=== PATIENT | female | born 1965 | race Caucasian/White ===

== ENCOUNTER 2018-09-16 11:03 | Emergency (ER) | payer OTHER ==
[~2018-09-16] VITALS: Ht 165.1 cm; Wt 101.8 kg
[~2018-09-16 11:03] MED LIST: AMLO2.5T78 PO
[2018-09-16 11:18] VITALS: BP 179/100; PULSE 96; RESP 18; Ht 165.1 cm; Wt 101.8 kg
[2018-09-16] MEDS ORDERED: DIPHTH/TET/ACEL PERTUSS (ADULT) 0.5 ML VIAL IM* ONE (13:00)
[2018-09-16] MEDS ORDERED: MUPIROCIN 2% 22 GM OINT TOP ONE (13:30)
[2018-09-16] MEDS ORDERED: AMOX1TAB10 PO (13:31)
--- NOTE | 2018-09-16 20:28 | ERD ---
ER Documentation Chief Complaint Chief Complaint dog bite ( right breast area) HPI 52yo female presents for dog bite this morning. She was bite by her own dog over the right breast area. Unknown tetanus status. She currently has mild pain. No other complaints. ROS All systems reviewed and are negative except as per history of present illness. Medications Home Meds Active Scripts Mupirocin* (Bactroban*) 2% -22 Gram Oint...g., 1 APPLIC TOP BID for 7 Days, EA Prov:ALCON CASAREZ PA-C 09/18/18 Amoxicillin/Potassium Clav (Amox-Clav 875-125 mg Tablet) 875-125 mg Tab, 1 TAB PO BID for dog bite prophylaxis for 4 Days, #8 TAB Prov:ARTI FIORE DO 09/16/18 Reported Medications Amlodipine Besylate* (Amlodipine Besylate*) 2.5 Mg Tablet, 2.5 MG PO DAILY, TAB 08/11/14 Allergies Allergies: Coded Allergies: No Known Drug Allergies (Verified Allergy, Unknown, 09/16/18) PMhx/Soc History of Surgery: Yes (HYSTERECTOMY) Anesthesia Reaction: No Hx Neurological Disorder: No Hx Respiratory Disorders: No Hx Cardiac Disorders: Yes (HTN) Hx Psychiatric Problems: No Hx Miscellaneous Medical Probl: No Hx Alcohol Use: No Hx Substance Use: No Hx Tobacco Use: No Physical Exam Vitals temp 98, pulse 96, respiration 18, BP 179/100 Physical Exam Const: No acute distress Resp: Clear to auscultation bilaterally Cardio: Regular rate and rhythm, no murmurs Skin: Examination of the right breast area with nursing staff at bedside, there is a few puncture wounds, no active bleeding Back: No midline or flank tenderness Ext: No cyanosis, or edema Neur: Awake and alert Psych: Normal Mood and Affect Results 24 hrs Current Medications Medications Dose Sig/Niko Start Time Status Last (Trade) Ordered Route PRN Stop Time Admin Dose Reason Admin Diphtheria/ 0.5 ml ONCE ONCE 09/16/18 DC 09/16/18 Tetanus/Acell IM* 13:00 12:58 Pertussis 09/16/18 13:01 (Adacel) Mupirocin 1 applic ONCE ONCE 09/16/18 DC (Bactroban) TOP 13:30 09/16/18 13:31 Procedures/MDM Medical Decision Making: Patient presents with dog bite over the right breast area, there is no active bleeding. Patient appeared well on physical exam. The right breast area was irrigated. Patient was given tetanus shot. Patient given prescription for Augmentin. Advised to return to the ER in 2 days for a wound check. Patient noted to have a elevated blood pressure 179/100. She does have a histor y of hypertension and stated that she did not take her medication this afternoon. Patient currently is symptomatic. Patient advised to follow with her primary care physician regarding the hypertension. Patient advised to follow up with PCP in 1-2 days. Patient advised to return to ED for new or worsening symptoms. Patient stable on discharge from the ED. Disclaimer: Inadvertent spelling and grammatical errors are likely due to EHR/dictation software use and do not reflect on the overall quality of patient care. Also, please note that the electronic time recorded on this note does not necessarily reflect the actual time of the patient encounter. Departure Diagnosis: Primary Impression: Dog bite Condition: Fair Patient Instructions: Dog Bite Referrals: [facility] YOU HAVE RECEIVED A MEDICAL SCREENING EXAM AND THE RESULTS INDICATE THAT YOU DO NOT HAVE A CONDITION THAT REQUIRES URGENT TREATMENT IN THE EMERGENCY DEPARTMENT. FURTHER EVALUATION AND TREATMENT OF YOUR CONDITION CAN WAIT UNTIL YOU ARE SEEN IN YOUR DOCTORS OFFICE WITHIN THE NEXT 1-2 DAYS. IT IS YOUR RESPONSIBILITY TO MAKE AN APPOINTMENT FOR FOLOW-UP CARE. IF YOU HAVE A PRIMARY DOCTOR --you should call your primary doctor and schedule an appointment IF YOU DO NOT HAVE A PRIMARY DOCTOR YOU CAN CALL OUR PHYSICIAN REFERRAL HOTLINE AT IF YOU CAN NOT AFFORD TO SEE A PHYSICIAN YOU CAN CHOSE FROM THE FOLLOWING [facility] [address] [facility] [address] [facility] [address] [facility] [facility] [address] [facility] [address] [facility]. [facility]. [address] Additional Instructions: Call your primary care doctor TOMORROW for an appointment during the next 1-2 days.See the doctor sooner or return here if your condition worsens before your appointment time. ARTI FIORE DO Sep 16, 2018 20:28
== END 2018-09-16 13:59 | disposition home or self-care (01) ==
LOC: FTE 11:03
DX: S21.052A Open bite of left breast, initial encounter (principal); I10 Essential (primary) hypertension; W54.0XXA Bitten by dog, initial encounter; Z23 Encounter for immunization
CPT/HCPCS: 90715; Z7610; 90471

== ENCOUNTER 2018-09-18 04:42 | Emergency (ER) | payer OTHER ==
[~2018-09-18] VITALS: Ht 165.1 cm; Wt 102.7 kg
[~2018-09-18 04:42] MED LIST changes: +AMOX1TAB10 PO
[2018-09-18 04:45] VITALS: BP 189/98; PULSE 88; RESP 19; Ht 165.1 cm; Wt 102.7 kg
[2018-09-18] MEDS ORDERED: MUPI22OI2 TOP (06:25)
--- NOTE | 2018-09-18 07:18 | ERD ---
ER Documentation Chief Complaint Chief Complaint RECHECK DOG BITE ON RIGHT BREAST HPI 52-year-old female presenting for wound check of the right breast. Patient sustained a dog bite to her right breast 2 days ago. Patient has been applying topical antibiotic cream with alleviation of symptoms. Patient has had no fevers. Patient's pain is improving. Denies any medical problems. NKDA. Surgical history denies. Social history denies ROS All systems reviewed and are negative except as per history of present illness. Medications Home Meds Active Scripts Mupirocin* (Bactroban*) 2% -22 Gram Oint...g., 1 APPLIC TOP BID for 7 Days, EA Prov:ALCON CASAREZ PA-C 09/18/18 Amoxicillin/Potassium Clav (Amox-Clav 875-125 mg Tablet) 875-125 mg Tab, 1 TAB PO BID for dog bite prophylaxis for 4 Days, #8 TAB Prov:FIOREARTI 09/16/18 Reported Medications Amlodipine Besylate* (Amlodipine Besylate*) 2.5 Mg Tablet, 2.5 MG PO DAILY, TAB 08/11/14 Allergies Allergies: Coded Allergies: No Known Drug Allergies (Verified Allergy, Unknown, 09/16/18) PMhx/Soc History of Surgery: Yes (HYSTERECTOMY) Anesthesia Reaction: No Hx Neurological Disorder: No Hx Respiratory Disorders: No Hx Cardiac Disorders: Yes (HTN) Hx Psychiatric Problems: No Hx Miscellaneous Medical Probl: No Hx Alcohol Use: No Hx Substance Use: No Hx Tobacco Use: No FmHx Family History: No diabetes, No coronary disease, No other Physical Exam Vitals Vital Signs Date Temp Pulse Resp B/P (MAP) Pulse Ox O2 O2 Flow FiO2 Time Delivery Rate 09/18/18 97.8 88 19 189/98 98 04:45 (128) Physical Exam GENERAL: The patient is well-appearing, well-nourished, in no acute distress CHEST: Clear to auscultation bilaterally. There are no rales, wheezes or rhonchi. HEART: Regular rate and rhythm. No murmurs, clicks, rubs or gallops. SKIN: Wound noted to the right breast with no surrounding fluctuance or purulence. No erythema. Healing appropriately. Procedures/MDM MDM: 52-year-old female presenting for wound check. Since dog bite of the right breast appears to be healing appropriately and I have low suspicion for deep tracking infection. Patient is discharged with continued use of antibiotic cream. I do not feel that oral antibiotics are indicated. Patient vitals are stable. Patient is nontoxic appearing. She is discharged stricter precautions and told to follow-up with primary care within 1-2 days for close evaluation. Patient is told if symptoms change or worsen to immediately return to the ER. All questions answered at discharge Departure Diagnosis: Primary Impression: Encounter for wound re-check Additional Impression: Dog bite Condition: Stable Patient Instructions: Wound Check, Lac F/U (No Infection) Referrals: [facility] YOU HAVE RECEIVED A MEDICAL SCREENING EXAM AND THE RESULTS INDICATE THAT YOU DO NOT HAVE A CONDITION THAT REQUIRES URGENT TREATMENT IN THE EMERGENCY DEPARTMENT. FURTHER EVALUATION AND TREATMENT OF YOUR CONDITION CAN WAIT UNTIL YOU ARE SEEN IN YOUR DOCTORS OFFICE WITHIN THE NEXT 1-2 DAYS. IT IS YOUR RESPONSIBILITY TO MAKE AN APPOINTMENT FOR FOLOW-UP CARE. IF YOU HAVE A PRIMARY DOCTOR --you should call your primary doctor and schedule an appointment IF YOU DO NOT HAVE A PRIMARY DOCTOR YOU CAN CALL OUR PHYSICIAN REFERRAL HOTLINE AT IF YOU CAN NOT AFFORD TO SEE A PHYSICIAN YOU CAN CHOSE FROM THE FOLLOWING [facility] [address] [facility]. [facility] [address] [facility]. [facility] [address] [facility] [address] [facility] [address] [facility]. [facility]. [address] Additional Instructions: FOLLOW UP WITH YOUR PRIMARY CARE PHYSICIAN TOMORROW.Return to this facility if you are not improving as expected. ALCON CASAREZ PA-C Sep 18, 2018 07:17
== END 2018-09-18 06:57 | disposition home or self-care (01) ==
LOC: FTE 04:42
DX: Z48.01 Encounter for change or removal of surgical wound dressing (principal); I10 Essential (primary) hypertension
CPT/HCPCS: 99283

== ENCOUNTER 2019-01-11 18:14 | Emergency (ER) | payer OTHER ==
[~2019-01-11] VITALS: Ht 167.6 cm; Wt 103.3 kg
[~2019-01-11 18:14] MED LIST changes: +MUPI22OI2 TOP
[2019-01-11 18:16] VITALS: BP 174/94; Ht 167.6 cm; Wt 103.3 kg
[2019-01-11] MEDS ORDERED: morphine 4 MG/ML VIAL IV STA ×2 (19:30→20:34)
[2019-01-11] MEDS ORDERED: SOD CHLORIDE 0.9% 500 ML IV STA (19:30)
[2019-01-11] MEDS ORDERED: ONDANSETRON 4 MG INJ IV STA ×2 (19:30→20:34)
--- NOTE | 2019-01-11 22:16 | ERD ---
ER Documentation Chief Complaint Chief Complaint RIGHT FLANK PAIN X 2 DAYS; DENIES N/V HPI Family interpreting. 53-year-old female who presents to the emergency room complaining of right upper quadrant abdominal pain. She describes constant and intermittent abdominal pain to the right upper quadrant with slight radiation to the back. No postprandial symptoms, no pleuritic pain chest pain or exertional symptoms. The patient de nies any nausea or vomiting or constipation. Only prior surgical history is hysterectomy. Pain is 8 out of 10 currently. ROS All systems reviewed and are negative except as per history of present illness. Medications Home Meds Active Scripts Dicyclomine HCl (Dicyclomine HCl) 10 Mg Capsule, 10 MG PO TID PRN for ABDOMINAL CRAMPING, #20 CAP Prov:WENDY OCAMPO MD 01/11/19 Polyethylene Glycol* (Miralax*) 17 Gm Powd.pack, 17 GM PO DAILY PRN for CONSTIPATION, #7 Prov:WENDY OCAMPO MD 01/11/19 Mupirocin* (Bactroban*) 2% -22 Gram Oint...g., 1 APPLIC TOP BID for 7 Days, EA Prov:ALCON CASAREZ PA-C 09/18/18 Amoxicillin/Potassium Clav (Amox-Clav 875-125 mg Tablet) 875-125 mg Tab, 1 TAB PO BID for dog bite prophylaxis for 4 Days, #8 TAB Prov:ARTI FIORE DO 09/16/18 Reported Medications Amlodipine Besylate* (Amlodipine Besylate*) 2.5 Mg Tablet, 2.5 MG PO DAILY, TAB 08/11/14 Allergies Allergies: Coded Allergies: No Known Drug Allergies (Verified Allergy, Unknown, 09/16/18) PMhx/Soc History of Surgery: Yes (HYSTERECTOMY) Anesthesia Reaction: No Hx Neurological Disorder: No Hx Respiratory Disorders: No Hx Cardiac Disorders: Yes (HTN) Hx Psychiatric Problems: No Hx Miscellaneous Medical Probl: No Hx Alcohol Use: No Hx Substance Use: No Hx Tobacco Use: No Smoking Status: Never smoker FmHx Family History: No diabetes Physical Exam Vitals Vital Signs Date Temp Pulse Resp B/P (MAP) Pulse Ox O2 O2 Flow FiO2 Time Delivery Rate 01/11/19 98.1 69 19 174/94 97 18:16 (120) Physical Exam General: Uncomfortable Head: Normocephalic, atraumatic. Eyes: Pupils equally reactive, EOM intact ENT: Moist mucous membranes Neck: Supple, no lymphadenopathy Respiratory: Lungs clear bilaterally, no distress Cardiovascular: RRR, no murmurs, rubs, or gallops Abdominal: Soft, focal tenderness of the right upper quadrant, no true Diamond sign. No rebound or guarding, no tenderness to McBurney's point : Deferred MSK: No edema, no unilateral swelling, 5/5 strength Neurologic: Alert and oriented, moving all extremities, normal speech, no focal weakness, no cerebellar signs Skin: No rash Psych: Normal mood Result Diagram: 01/11/19194301/11/191943 Results 24 hrs Laboratory Tests Test 01/11/19 19:37 01/11/19 19:44 01/11/19 19:52 Bedside Urine pH (LAB) 6.0 6.0 Bedside Urine Protein (LAB) Negative Trace Bedside Urine Glucose (UA) Negative Negative Bedside Urine Ketones (LAB) Negative Negative Bedside Urine Blood Trace-lysed Trace-intact Bedside Urine Nitrite (LAB) Negative Negative Bedside Urine Leukocyte Esterase Trace Trace (L White Blood Count 7.8 10^3/ul Red Blood Count 4.53 10^6/ul Hemoglobin 12.5 g/dl Hematocrit 39.4 % Mean Corpuscular Volume 87.0 fl Mean Corpuscular Hemoglobin 27.6 pg Mean Corpuscular 31.7 g/dl Hemoglobin Concent Red Cell Distribution Width 13.5 % Platelet Count 222 10^3/UL Mean Platelet Volume 10.1 fl Immature Granulocytes % 0.300 % Neutrophils % 50.5 % Lymphocytes % 41.2 % Monocytes % 6.3 % Eosinophils % 1.4 % Basophils % 0.3 % Nucleated Red Blood Cells % 0.0 /100WBC Immature Granulocytes # 0.020 10^3/ul Neutrophils # 4.0 10^3/ul Lymphocytes # 3.2 10^3/ul Monocytes # 0.5 10^3/ul Eosinophils # 0.1 10^3/ul Basophils # 0.0 10^3/ul Nucleated Red Blood Cells # 0.0 10^3/ul Sodium Level 141 mmol/L Potassium Level 3.9 mmol/L Chloride Level 106 mmol/L Carbon Dioxide Level 28 mmol/L Anion Gap 7 Blood Urea Nitrogen 17 mg/dl Creatinine 0.59 mg/dl Est Glomerular Filtrat Rate mL/min > 60 mL/min Glucose Level 91 mg/dl Calcium Level 9.4 mg/dl Total Bilirubin 0.3 mg/dl Direct Bilirubin 0.00 mg/dl Indirect Bilirubin 0.3 mg/dl Aspartate Amino Transf (AST/SGOT) 23 IU/L Alanine 24 IU/L Aminotransferase (ALT/SGPT) Alkaline Phosphatase 71 IU/L Total Protein 7.7 g/dl Albumin 4.2 g/dl Globulin 3.50 g/dl Albumin/Globulin Ratio 1.20 Lipase 32 U/L Current Medications Medications Dose Sig/Niko Start Time Status Last (Trade) Ordered Route PRN Stop Time Admin Dose Reason Admin Sodium 500 ml @ Q1H STAT 01/11/19 DC 01/11/19 Chloride 500 mls/hr IV 19:30 19:39 01/11/19 20:29 Morphine 4 mg ONCE STAT 01/11/19 DC 01/11/19 Sulfate IV 19:30 19:39 (morphine) 01/11/19 19:31 Ondansetron 4 mg ONCE STAT 01/11/19 DC 01/11/19 HCl (Zofran IV 19:30 19:39 Inj) 01/11/19 19:31 Morphine 4 mg ONCE STAT 01/11/19 DC 01/11/19 Sulfate IV 20:34 20:54 (morphine) 01/11/19 20:37 Ondansetron 4 mg ONCE STAT 01/11/19 DC 01/11/19 HCl (Zofran IV 20:34 20:54 Inj) 01/11/19 20:37 Ketorolac 30 mg ONCE STAT 01/11/19 DC 01/11/19 Tromethamine IV 22:21 22:35 (Toradol) 01/11/19 22:22 Magnesium 300 ml ONCE ONCE 01/11/19 Citrate PO 23:00 (Citroma) 01/11/19 23:01 Procedures/MDM EKG, MONITORS, & DIAGNOSTIC IMAGING: USGB IMPRESSION: 1. The liver is enlarged, measuring 22 cm in length. Increased hepatic echotexture, consistent with hepatic steatosis. 2. Sonographically normal gallbladder and biliary system. CT A/P IMPRESSION: 1. Moderate stool burden in the right colon may reflect constipation. 2. Minimal left colonic diverticulosis without evidence of acute diverticulitis. 3. Small sliding hiatal hernia. 4. Stable mild hepatomegaly. 5. No nephrolithiasis nor hydronephrosis. 6. Slight worsening of multilevel spondylotic changes which appear most pronounced at L3-4 and L4-5 where there is probably moderate canal and bilateral neural foraminal stenosis. This can be better evaluated by MRI L-spine if clinically warranted. RPTAT: HSAN LAB INTERPRETATION: I reviewed the laboratory testing and it shows no evidence of acute process MEDICAL DECISION MAKING: The patient's presentation is consistent with right upper quadrant abdominal pain. High likelihood of biliary process. Lower clinical concern for acute cholecystitis. Patient also has some flank component, consider ureterolithiasis but better likelihood of gallbladder disease process. Otherwise the patient's abdomen is benign without signs of acute appendicitis. Patient has no chest pain and no shortness of breath to suggest cardiopulmonary process or diaphragm irritation. ER COURSE: * Patient's ultrasound and laboratory testing is unremarkable but the patient still has persistent symptoms. CT imaging of the abdomen pelvis has been ordered. * CT findings suggestive right-sided colonic stool burden. This is the only clear explanation of the patient's right-sided abdominal pain. Patient's pain is improved after nonsteroidal anti-inflammatory. I believe a good stool a bowel regimen would be appropriate. Return precautions were discussed and understood. Patient feels very comfortable with this plan. Repeat abdominal exam is again benign. CONSULTATION: None DISPOSITION PLAN: The patient does not have an identifiable emergent medical condition that warrants inpatient hospitalization at this time. The patient is deemed safe for discharge with outpatient follow-up. We discussed follow up with the patient's primary care doctor within 24 to 48 hours as needed. We also discussed return to the emergency room for worsening symptoms or worsening condition. Outpatient referral: None required Discharge Medications: MiraLAX, Bentyl Departure Diagnosis: Primary Impression: Right upper quadrant pain Additional Impression: Constipation Constipation type: unspecified constipation type Qualified Codes: K59.00 - Constipation, unspecified Condition: Stable WENDY OCAMPO MD January 11, 2019 22:16
[2019-01-11] MEDS ORDERED: KETOROLAC 30 MG INJ IV STA (22:21)
[2019-01-11] MEDS ORDERED: DICY10CA40 PO (22:52)
[2019-01-11] MEDS ORDERED: POLY17PO6 PO (22:52)
[2019-01-11] MEDS ORDERED: MAGNESIUM CITRATE 300 ML BTL PO ONE (23:00)
[2019-01-11 23:11] VITALS: PULSE 77; RESP 16
== END 2019-01-11 23:14 | disposition home or self-care (01) ==
LOC: E/R 18:14
DX: R10.11 Right upper quadrant pain (principal); I10 Essential (primary) hypertension; K59.00 Constipation, unspecified
CPT/HCPCS: 36415; 74176; 76705; 80053; 81003; 83690; 85025; 96361; 96374; 96375; J1885; J2270; J2405; J7040; Z7502; Z7610

== ENCOUNTER 2019-01-15 19:06 | Emergency (ER) | payer OTHER ==
[~2019-01-15] VITALS: Ht 165.1 cm; Wt 102.1 kg
[~2019-01-15 19:06] MED LIST changes: +DICY10CA40 PO; +POLY17PO6 PO
[2019-01-15 19:21] VITALS: Ht 165.1 cm; Wt 102.1 kg
[2019-01-15] MEDS ORDERED: TRAM50TA2 PO (23:37)
[2019-01-15 23:53] VITALS: BP 147/81; PULSE 67; RESP 16
--- NOTE | 2019-01-16 04:56 | ERD ---
ER Documentation Chief Complaint Chief Complaint C/O RT SIDED RIB PAIN X6 DAYS HPI 53-year-old female presents to the ED for the second time this week with complaints of waxing and waning right upper quadrant abdominal pain x6 days. She was evaluated here 4 days ago with extensive work-up that was unremarkable. She presents today with same pain. She states pain is mostly localized to the right upper quadrant and shoots to her mid back. Does not know of any precipitating, exacerbating or relieving factors. Has been taking the medication she is prescribed without any relief. She denies any associated nausea, vomiting, fevers, chills, chest pain, shortness of breath or any other complaints. No history of back trauma. ROS All systems reviewed and are negative except as per history of present illness. Medications Home Meds Active Scripts Tramadol HCl (Tramadol HCl) 50 Mg Tablet, 50 MG PO Q6 PRN for PAIN, #20 TAB Prov:KERRY MENDOZA PA-C 01/15/19 Dicyclomine HCl (Dicyclomine HCl) 10 Mg Capsule, 10 MG PO TID PRN for ABDOMINAL CRAMPING, #20 CAP Prov:WENDY OCAMPO MD 01/11/19 Polyethylene Glycol* (Miralax*) 17 Gm Powd.pack, 17 GM PO DAILY PRN for CONSTIPATION, #7 Prov:WENDY OCAMPO MD 01/11/19 Mupirocin* (Bactroban*) 2% -22 Gram Oint...g., 1 APPLIC TOP BID for 7 Days, EA Prov:ALCON CASAREZ PA-C 09/18/18 Amoxicillin/Potassium Clav (Amox-Clav 875-125 mg Tablet) 875-125 mg Tab, 1 TAB PO BID for dog bite prophylaxis for 4 Days, #8 TAB Prov:ARTI FIORE DO 09/16/18 Reported Medications Amlodipine Besylate* (Amlodipine Besylate*) 2.5 Mg Tablet, 2.5 MG PO DAILY, TAB 08/11/14 Allergies Allergies: Coded Allergies: No Known Drug Allergies (Verified Allergy, Unknown, 09/16/18) PMhx/Soc History of Surgery: Yes (HYSTERECTOMY) Anesthesia Reaction: No Hx Neurological Disorder: No Hx Respiratory Disorders: No Hx Cardiac Disorders: Yes (HTN) Hx Psychiatric Problems: No Hx Miscellaneous Medical Probl: No Hx Alcohol Use: No Hx Substance Use: No Hx Tobacco Use: No Smoking Status: Never smoker Physical Exam Vitals Vital Signs Date Temp Pulse Resp B/P (MAP) Pulse Ox O2 O2 Flow FiO2 Time Delivery Rate 01/15/19 97.5 67 16 147/81 96 Room Air 23:53 (103) 01/15/19 98.7 89 19 171/85 99 19:21 (113) Physical Exam Const: No acute distress. Head: Atraumatic Eyes: Normal Conjunctiva ENT: Normal External Ears, Nose and Mouth. Neck: Full range of motion. No meningismus. Resp: Clear to auscultation bilaterally Cardio: Regular rate and rhythm, no murmurs Abd: + Obese. Soft, + moderate right upper quadrant tenderness to palpation. Negative Diamond's. Negative McBurney's. No rebound, no guarding. Non distended. Normal bowel sounds Skin: No petechiae or rashes Back: No midline or flank tenderness Ext: No cyanosis, or edema Neur: Awake and alert Psych: Normal Mood and Affect Procedures/MDM DIAGNOSTIC IMAGING: PROCEDURE: XR Chest. TECHNIQUE: Single frontal radiograph. CLINICAL INDICATION: chest/back pain COMPARISON: None. FINDINGS: Elevation of the right hemidiaphragm with mild right basilar atelectasis. Hemidiaphragms are sharply defined. No evidence of focal consolidation, pneumothorax, or pleural effusion. Cardiac silhouette appears mildly enlarged. Visualized osseous thorax is unremarkable. Overlying soft tissues are equally unremarkable. IMPRESSION: No evidence of acute cardiopulmonary process. Mild cardiomegaly. PROCEDURES: 12-lead EKG interpretation as interpeted by Dr. Fischer Normal Sinus Rhythm with ventricular rate of 73 beats per minute Normal axis Normal intervals No acute ST or T wave changes suggestive of acute ischemia or STEMI. MEDICAL DECISION MAKIN-year-old female presents to the ED for the second time in 4 days for complaints of right upper quadrant pain. She was initially evaluated with extensive work-up that was essentially negative. CT abdomen at that time showed mild constipation, otherwise unremarkable. Ultrasound gallbladder was negative as well. Discussed with her that she needs to be seen by GI specialist for further evaluation of her pain. Additional workup here including chest x-ray and EKG were unremarkable. Given her overall clinical presentation, biliary colic cannot be ruled out. I have low suspicion for RI, ACS, AAA, PE/DVT, or any emergent process. She was given Rx tramadol for pain and discharged home to follow-up with her PCP. Strict return precautions discussed. PRESCRIPTIONS: Tramadol SPECIALIST FOLLOW UP RECOMMENDED: GI Patient has been advised to follow up with primary care in 1-2 days. Blood Pressure Assessment: Patient's blood pressure was elevated (>120/80) but appears stable without evidence of hypertension emergency or urgency. The patient was counseled about the risks of hypertension and urged to pursue outpatient monitoring and therapy within a week with their primary care physic jonel. Departure Diagnosis: Primary Impression: Abdominal pain Abdominal location: right upper quadrant Qualified Codes: R10.11 - Right upper quadrant pain Condition: Stable Patient Instructions: Abdominal Pain, Biliary Colic With Gallstone (Presumed) Referrals: [facility] YOU HAVE RECEIVED A MEDICAL SCREENING EXAM AND THE RESULTS INDICATE THAT YOU DO NOT HAVE A CONDITION THAT REQUIRES URGENT TREATMENT IN THE EMERGENCY DEPARTMENT. FURTHER EVALUATION AND TREATMENT OF YOUR CONDITION CAN WAIT UNTIL YOU ARE SEEN IN YOUR DOCTORS OFFICE WITHIN THE NEXT 1-2 DAYS. IT IS YOUR RESPONSIBILITY TO MAKE AN APPOINTMENT FOR [facility]. IF YOU HAVE A PRIMARY DOCTOR --you should call your primary doctor and schedule an appointment IF YOU DO NOT HAVE A PRIMARY DOCTOR YOU CAN CALL OUR PHYSICIAN REFERRAL HOTLINE AT IF YOU CAN NOT AFFORD TO SEE A PHYSICIAN YOU CAN CHOSE FROM THE FOLLOWING [facility] [address] [facility]. [facility] [address] [facility] [address] [facility] [address] [id number]. [facility] [address] [facility]. [facility]. [address] [facility]. [facility] YOU HAVE RECEIVED A MEDICAL SCREENING EXAM AND THE RESULTS INDICATE THAT YOU DO NOT HAVE A CONDITION THAT REQUIRES URGENT TREATMENT IN THE EMERGENCY DEPARTMENT. FURTHER EVALUATION AND TREATMENT OF YOUR CONDITION CAN WAIT UNTIL YOU ARE SEEN IN YOUR DOCTORS OFFICE WITHIN THE NEXT 1-2 DAYS. IT IS YOUR RESPONSIBILITY [facility]. IF YOU HAVE A PRIMARY DOCTOR --you should call your primary doctor and schedule and appointment IF YOU DO NOT HAVE A PRIMARY DOCTOR YOU CAN CALL OUR PHYSICIAN REFERRAL HOTLINE AT . IF YOU CAN NOT AFFORD TO SEE A PHYSICIAN YOU CAN CHOSE FROM THE FOLLOWING [facility] INSTITUTIONS: [facility] [address] [place] [address] [facility] [address] [place] [address] [facility] [address] [place] [address] [facility] URGENT CARE/SPECIALTIES Additional Instructions: Must follow-up with the primary care provider for referral to a GI specialist as they can do further testing and monitoring of your pain. In the meantime, I am prescribing her tramadol which she can take for any pain. Monitor your diet, and return here for any new or worsening symptoms. KERRY MENDOZA PA-C January 16, 2019 04:56
--- NOTE | 2019-01-18 15:04 | RADRPT ---
Vent Rate: 73 bpm RR Interval: 0 msec AR Interval: 128 msec QRS Duration: 86 msec QT Interval: 420 msec QTC Interval: 462 msec P-R-T [place]: 52 - 56 - 46 degrees Normal sinus rhythm Normal ECG Electronically Signed By: [facility]
== END 2019-01-15 23:53 | disposition home or self-care (01) ==
LOC: FTE 19:06
DX: R10.11 Right upper quadrant pain (principal); I10 Essential (primary) hypertension
CPT/HCPCS: 71045; 93005; Z7502

== ENCOUNTER 2019-01-17 13:02 | Emergency (ER) | payer OTHER ==
[~2019-01-17] VITALS: Ht 165.1 cm; Wt 101.6 kg
[~2019-01-17 13:02] MED LIST changes: +TRAM50TA2 PO
[2019-01-17 13:11] VITALS: Ht 165.1 cm; Wt 101.6 kg
[2019-01-17] MEDS ORDERED: HYDROmorphONE 1 MG/ML SYG IV STA (14:02)
[2019-01-17] MEDS ORDERED: SOD CHLORIDE 0.9% 1,000 ML IV STA (14:02)
[2019-01-17] MEDS ORDERED: ONDANSETRON 4 MG INJ IV STA (14:02)
[2019-01-17] MEDS ORDERED: ATEN-51 PO (14:15)
[2019-01-17] MEDS ORDERED: HYDR25TA6 PO (14:15)
[2019-01-17] MEDS ORDERED: METH750T2 PO (14:16)
[2019-01-17] MEDS ORDERED: CIPR500T4 PO (14:16)
[2019-01-17] MEDS ORDERED: METR-122 PO (14:17)
--- NOTE | 2019-01-17 16:35 | ERD ---
ER Documentation Chief Complaint Chief Complaint c/o right flank pain with pain goes to right UQ abd. for 2 weeks HPI 53-year-old female, son is interpreting for the patient per the patient presents with at least 1 to 2 weeks of right upper quadrant abdominal pain radiating to the flank. I saw the patient initially with broad work-up including gallbladder ultrasound and CT imaging of the abdomen pelvis that showed evidence of stool retention. Otherwise no acute process. The patient has been here another time since and this is not the third visits for similar pain. The patient is taking pain medication without relief. She denies any rash. No shortness of breath no chest pain no pleuritic pain no calf swelling. Patient denies any exertional symptoms but the pain is constant and unrelenting. Patient is set up to follow- up with her rfid developer next week but the pain is persistent. Pain is noted to be 8 out of 10 currently. ROS All systems reviewed and are negative except as per history of present illness. Medications Home Meds Active Scripts Naloxone HCl nasal spray (Narcan 4 mg/0.1 mL nasal) 4 Mg [place], 4 MG NS .Q2-3MIN for OPIOID OVERDOSE, #2 SPRAY 0 Refills [place] 0.1 mL into one nostril. Repeat with second device into other nostril after 2-3 minutes if no or minimal response Prov:WENDY OCAMPO MD 01/17/19 Ondansetron (Ondansetron Odt) 4 Mg Tab.rapdis, 4 MG PO Q6H PRN for NAUSEA AND/OR VOMITING, #10 TAB Prov:WENDY OCAMPO MD 01/17/19 Hydrocodone/Acetaminophen ([place] 10-325 Tablet) 1 Each Tablet, 1 TAB PO Q6H PRN for PAIN, #12 TAB Prov:WENDY OCAMPO MD 01/17/19 Reported Medications Metronidazole* (Metronidazole*) 500 Mg Tablet, 500 MG PO BID, TAB 01/17/19 Ciprofloxacin Hcl* (Ciprofloxacin Hcl*) 500 Mg Tablet, 500 MG PO BID, #14 TAB STARTED 01-16-19 FOR 7 DAYS 01/17/19 Methocarbamol* (Methocarbamol*) 750 Mg Tablet, 750 MG PO BID, TAB 01/17/19 Atenolol* (Atenolol*) 25 Mg Tablet, 25 MG PO DAILY, #30 TAB 01/17/19 Hydrochlorothiazide* (Hydrochlorothiazide*) 25 Mg Tab, 25 MG PO DAILY, #30 TAB 01/17/19 Discontinued Reported Medications Amlodipine Besylate* (Amlodipine Besylate*) 2.5 Mg Tablet, 2.5 MG PO DAILY, TAB 08/11/14 Discontinued Scripts Tramadol HCl (Tramadol HCl) 50 Mg Tablet, 50 MG PO Q6 PRN for PAIN, #20 TAB Prov:KERRY MENDOZA PA-C 01/15/19 Dicyclomine HCl (Dicyclomine HCl) 10 Mg Capsule, 10 MG PO TID PRN for ABDOMINAL CRAMPING, #20 CAP Prov:WENDY OCAMPO MD 01/11/19 Polyethylene Glycol* (Miralax*) 17 Gm Powd.pack, 17 GM PO DAILY PRN for CONSTIPA TION, #7 Prov:WENDY OCAMPO MD 01/11/19 Mupirocin* (Bactroban*) 2% -22 Gram Oint...g., 1 APPLIC TOP BID for 7 Days, EA Prov:ALCON CAASREZ PA-C 09/18/18 Amoxicillin/Potassium Clav (Amox-Clav 875-125 mg Tablet) 875-125 mg Tab, 1 TAB PO BID for dog bite prophylaxis for 4 Days, #8 TAB Prov:ARTI FIORE DO 09/16/18 Allergies Allergies: Coded Allergies: No Known Drug Allergies (Verified Allergy, Unknown, 01/17/19) PMhx/Soc History of Surgery: Yes (HYSTERECTOMY) Anesthesia Reaction: No Hx Neurological Disorder: No Hx Respiratory Disorders: No Hx Cardiac Disorders: Yes (HTN) Hx Psychiatric Problems: No Hx Miscellaneous Medical Probl: No Hx Alcohol Use: No Hx Substance Use: No Hx Tobacco Use: No Smoking Status: Never smoker FmHx Family History: No diabetes Physical Exam Vitals Vital Signs Date Temp Pulse Resp B/P (MAP) Pulse Ox O2 O2 Flow FiO2 Time Delivery Rate 01/17/19 97.9 64 20 137/79 98 Room Air 16:21 (98) 01/17/19 97.9 67 20 161/84 98 13:11 (109) Physical Exam General: Well developed, well nourished, no acute distress Head: Normocephalic, atraumatic. Eyes: Pupils equally reactive, EOM intact ENT: Moist mucous membranes Neck: Supple, no lymphadenopathy Respiratory: Lungs clear bilaterally, no distress Cardiovascular: RRR, no murmurs, rubs, or gallops, no tenderness along the ribs Abdominal: Soft, focal tenderness noted to the right upper quadrant, no tenderness to McBurney's point : Deferred MSK: No edema, no unilateral swelling, 5/5 strength Neurologic: Alert and oriented, moving all extremities, normal speech, no focal weakness, no cerebellar signs Skin: No rash Psych: Normal mood Result Diagram: 01/17/19 1412 01/17/19 1412 Results 24 hrs Laboratory Tests Test 01/17/19 14:12 01/17/19 14:26 White Blood Count 7.0 10^3/ul Red Blood Count 4.66 10^6/ul Hemoglobin 12.9 g/dl Hematocrit 40.5 % Mean Corpuscular Volume 86.9 fl Mean Corpuscular Hemoglobin 27.7 pg Mean Corpuscular Hemoglobin Concent 31.9 g/dl Red Cell Distribution Width 13.4 % Platelet Count 215 10^3/UL Mean Platelet Volume 10.1 fl Immature Granulocytes % 0.400 % Neutrophils % 56.5 % Lymphocytes % 36.8 % Monocytes % 5.0 % Eosinophils % 1.0 % Basophils % 0.3 % Nucleated Red Blood Cells % 0.0 /100WBC Immature Granulocytes # 0.030 10^3/ul Neutrophils # 4.0 10^3/ul Lymphocytes # 2.6 10^3/ul Monocytes # 0.4 10^3/ul Eosinophils # 0.1 10^3/ul Basophils # 0.0 10^3/ul Nucleated Red Blood Cells # 0.0 10^3/ul Sodium Level 141 mmol/L Potassium Level 3.8 mmol/L Chloride Level 108 mmol/L Carbon Dioxide Level 23 mmol/L Anion Gap 10 Blood Urea Nitrogen 15 mg/dl Creatinine 0.80 mg/dl Est Glomerular Filtrat Rate mL/min > 60 mL/min Glucose Level 91 mg/dl Calcium Level 9.4 mg/dl Total Bilirubin 0.7 mg/dl Direct Bilirubin 0.00 mg/dl Indirect Bilirubin 0.7 mg/dl Aspartate Amino Transf (AST/SGOT) 21 IU/L Alanine Aminotransferase (ALT/SGPT) 26 IU/L Alkaline Phosphatase 62 IU/L Troponin I < 0.012 ng/ml Total Protein 7.3 g/dl Albumin 4.2 g/dl Globulin 3.10 g/dl Albumin/Globulin Ratio 1.35 Lipase 28 U/L POC Venous Lactate 1.9 mmol/L Current Medications Medications Dose Sig/Niko Start Time Status Last (Trade) Ordered Route PRN Stop Time Admin Dose Reason Admin Sodium 1,000 ml @ Q1H STAT 01/17/19 DC 01/17/19 Chloride 1,000 mls/hr IV 14:02 14:32 01/17/19 15:01 1 mg ONCE STAT 01/17/19 DC Hydromorphone IV 14:02 HCl 01/17/19 14:03 (Dilaudid) Ondansetron 4 mg ONCE STAT 01/17/19 DC HCl (Zofran IV 14:02 Inj) 01/17/19 14:03 IV Flush 10 ml STK-MED 01/17/19 DC (NS 10 ml) ONCE .ROUTE 17:16 01/17/19 17:17 Sodium 100 ml @ ud STK-MED 01/17/19 DC Chloride ONCE .ROUTE 17:16 01/17/19 17:17 Iohexol 100 ml @ ud STK-MED 01/17/19 DC ONCE .ROUTE 17:16 01/17/19 17:17 1 tab ONCE ONCE 01/17/19 Acetaminophen PO 20:30 / 01/17/19 20:31 Hydrocodone Bitart ([place] (10/325)) Procedures/MDM EKG, MONITORS, & DIAGNOSTIC IMAGING: EKG: I reviewed and interpreted a 12-lead EKG. Rhythm: Normal sinus rhythm ST Changes: No contiguous ST segment elevations T waves: No contiguous T wave inversions Impression: No evidence of acute cardiac ischemia CTA chest abdomen and pelvis IMPRESSION: 1. The thoracic aorta is unremarkable. No aneurysm or dissection. 2. The pulmonary arteries are unremarkable. No pulmonary embolism. 3. Mild atelectasis noted in the dependent portions of the lung bases. No consolidative pulmonary infiltrates. LAB INTERPRETATION: I reviewed the laboratory testing and it shows no evidence of acute process MEDICAL DECISION MAKING: It is unclear what is causing the patient's persistent right upper quadrant abdominal pain. The patient very clearly localizes to the right upper quadrant but had negative ultrasound and negative CT imaging fairly recently. The patient has no chest pain, no pleuritic pain to suggest cardiac etiology or pulmonary embolism. Patient had a recent chest x-ray that was unremarkable as well. Patient has no rash to suggest shingles. Consider possible thoracic radiculopathy. Much lower clinical concern for mesenteric ischemia but I cannot think of any other etiology at this time it was causing the patient's symptoms. I do believe that further testing would be appropriate including CTA of the chest abdomen and pelvis. The patient will benefit from repeat laboratory testing, lactic acid and cardiac work-up as well. Given the subacute nature emergent medical condition is unlikely to exist. In the end I am not sure we can have a clear answer for the patient's symptoms. The patient would benefit from pain control medication. She warrants further outpatient work-up including GI consultation potentially MRI imaging of the thoracolumbar spine. ER COURSE: * The patient's lavatory testing and diagnostic imaging is reassuring to the patient received pain medication and has moderate improvement. * At this point there is still unclear etiology as to the patient's flank pain. My best guess at this point would be possible thoracolumbar radiculopathy that is nonobstructive. The patient has no neurologic deficits that would warrant emergent MRI imaging. Outpatient MRI imaging may be appropriate. I discussed inpatient versus outpatient management. At this point I do not believe there is significant benefit inpatient management. I discussed this with the family would like to go home. * The patient was prescribed some antibiotics but there is no evidence of infection. I recommend discontinuing antibiotics and of the pain medication and just taking with [place]. Patient may benefit from initiation of gabapentin and Lyrica but this should be done through primary care physician. * Patient has follow-up with rfid developer next week. Return precautions were discussed and understood. CONSULTATION: None DISPOSITION PLAN: The patient does not have an identifiable emergent medical condition that warra nts inpatient hospitalization at this time. The patient is deemed safe for discharge with outpatient follow-up. We discussed follow up with the patient's primary care doctor within 24 to 48 hours as needed. We also discussed return to the emergency room for worsening symptoms or worsening condition. Outpatient referral: None required Discharge Medications: [place], Zofran, Narcan NARCOTIC MEDICATION: The patient has been prescribed a narcotic medication during this encounter. The patient has been warned about the use of narcotics. The patient should not drive or operate heavy machinery while taking this medication. The patient was also warned about the addictive properties of narcotic medications. Narcan prescription WAS provided given one of the following criteria were met: 1. More than 5 tablets of [place] 10 mg or 10 tablets of [place] 5 mg were prescribed. 2. Concomitant opiate and benzodiazepine prescriptions were provided. 3. There is evidence of prior history of opiate abuse or overdose. Departure Diagnosis: Primary Impression: Right flank pain Condition: Stable WENDY OCAMPO MD January 17, 2019 16:35
[2019-01-17] MEDS ORDERED: IOHEXOL 100 ML ONE (17:16)
[2019-01-17] MEDS ORDERED: SOD CHLORIDE 0.9% 100 ML ONE (17:16)
[2019-01-17] MEDS ORDERED: ONDA4TAB14 PO (20:12)
[2019-01-17] MEDS ORDERED: NALO4SPR NS (20:12)
[2019-01-17] MEDS ORDERED: HYDR-3980 PO (20:12)
[2019-01-17] MEDS ORDERED: HYDROCODONE/APAP (10/325) TAB PO ONE (20:30)
[2019-01-17 21:00] VITALS: BP 129/77; PULSE 62; RESP 15
--- NOTE | 2019-01-18 14:29 | RADRPT ---
Vent Rate: 58 bpm RR Interval: 0 msec HI Interval: 124 msec QRS Duration: 84 msec QT Interval: 442 msec QTC Interval: 433 msec P-R-T [place]: 53 - 59 - 61 degrees Sinus bradycardia Otherwise normal ECG Electronically Signed By: [facility]
== END 2019-01-17 21:50 | disposition home or self-care (01) ==
LOC: E/R 13:02
DX: R10.11 Right upper quadrant pain (principal); I10 Essential (primary) hypertension
CPT/HCPCS: 36415; 71275; 75635; 80053; 83605; 83690; 84484; 85025; 93005; J7030; Q9967; Z7502; Z7610